=== PATIENT | female | born 1955 | race Caucasian/White ===

== ENCOUNTER 2019-07-16 18:55 | Emergency (ER) | payer MEDICARE, OTHER ==
[~2019-07-16] VITALS: Ht 160 cm; Wt 69.4 kg
--- NOTE | ~2019-07-16 | EKG ---
[place], [place] ELECTROCARDIOGRAM REPORT NAME: LEONEL DELEON UNIT #: [id number] ROOM: DOCTOR: EPIPHANY DRAFT REPORT BIRTHDATE: [birth year] [facility] Test Date: 2019-07-16 Test Time: 19:04:44 Pat Name: LEONEL DELEON Department: Room: Gender: F Tub Operator: : 1955 Requested By: JATIN BRUMFIELD Order Number: [id number] Reading MD: Olimpia Green MD Measurements Intervals [place] Rate: 100 P: 69 MT: 163 QRS: 35 QRSD: 100 T: 46 QT: 370 QTc: 478 Interpretive Statements Sinus tachycardia Probable left atrial enlargement Electronically Signed On 07-17-2019 7:49:01 PST by Olimpia Green MD CM:EKGRPT:ELECTROCARDIOGRAM REPORT [id number] JATIN LAN DRAFT REPORT JATIN BRUMFIELD MD
[2019-07-16 19:07] LABS: BASO % 0.3 % (0.0-1.0); HEMOGLOBIN 13.6 g/dl (12.0-16.0); LYMPH # 2.7 10*3/uL (1.3-4.4); LYMPH % 19.5 % (27.0-41.0); MEAN CELL VOLUME 91.1 fl (81.0-99.0); MEAN CORPUSCULAR HGB 30.2 pg (27.0-31.0); MEAN CORPUSCULAR HGB CONC 33.2 g/dl (33.0-37.0); MEAN PLATELET VOLUME 8.9 fl (9.6-12.3); MONO # 0.8 10*3/uL (0.1-1.0); NEUT # 10.1 10*3/uL (2.3-7.9); NEUT % 73.5 % (47.0-73.0); PLATELET COUNT AUTOMATED 403 10*3/uL (130-400); WHITE BLOOD COUNT 13.7 10*3/uL (4.8-10.8)
[2019-07-16 19:35] LABS: ACT PARTIAL THROMBO TIME 25.7 SECONDS (20.0-32.1); INTERNATIONAL NORM RATIO 0.9 (2.0-3.5)
[2019-07-16 19:42] LABS: ALBUMIN 3.6 gm/dl (3.1-4.5); ALKALINE PHOSPHATASE 56 U/L (45-117); BUN 13 mg/dl (7-24); CHLORIDE 105 mmol/L (98-107); CREATININE 0.64 mg/dL (0.55-1.02); POTASSIUM 3.5 mmol/L (3.5-5.1); SGOT/AST 29 IU/L (3-35); SGPT/ALT 27 U/L (12-78); SODIUM 138 mmol/L (136-145); TOTAL PROTEIN 6.9 gm/dL (6.4-8.2)
[2019-07-16 19:43] LABS: TROPONIN I < 0.015 ng/ml (<0.045)
== END 2019-07-16 22:08 | disposition short-term general hospital (02) ==
LOC: ED 18:55
PROVIDERS: Emergency Medicine
DX: I62.9 Nontraumatic intracranial hemorrhage, unspecified (principal); R42 Dizziness and giddiness; R07.9 Chest pain, unspecified; R11.10 Vomiting, unspecified; R10.9 Unspecified abdominal pain; J45.909 Unspecified asthma, uncomplicated; M06.9 Rheumatoid arthritis, unspecified; Z88.0 Allergy status to penicillin; Z88.1 Allergy status to other antibiotic agents; Z88.7 Allergy status to serum and vaccine